=== PATIENT | male | born 1965 | race Caucasian/White ===

== ENCOUNTER 2020-04-15 12:13 | Observation (INO) ==
[2020-04-15] MEDS ORDERED: CYCLOBENZAPRINE HCL 10 MG TAB PO STA (12:25)
--- NOTE | 2020-04-15 12:33 | Emergency Department Note ---
Impression & Plan Strain of lumbar region, Intractable back pain ED Provider Note Provider: Abdiaziz Pulido MD DATE OF SERVICE: 04/15/2020 CHIEF COMPLAINT: Back pain HISTORY OF PRESENT ILLNESS: Patient is a 54-year-old gentleman resenting via ambulance today with report of back pain. Does have a history of back issues in the past. Patient states that he is been doing quite activity recently and on April 09 lifting something heavy in the onset of back pain. Moderate over day or 2 and then on April 12 was dragging a cold and experienced another injury. Denies actually falling or striking anything. Complaining of constant pain in the left lower back that occasionally has some slight radiation down the left leg. Denies any numbness or tingling of extremities or bladder or bowel dysfunction. Denies any dysuria or hematuria. Denies any abdominal pain. Patient states he not been eating well last couple days secondary to the pain. Has used some topical rubs at home but no other medicines at home for pain control. No history of back surgeries. Patient states that he has limited ability to rest at home and needs to take care of things and has continued to exert himself since the initial insult on the second. Patient received morphine and Zofran prior to arrival and states this is improving his pain quite a bit. Denies any new trauma falls or lifting this morning. Denies any upper back neck or head pain. REVIEW OF SYSTEMS: A total of 6 review of systems was obtained and negative except as stated above in the HPI. 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 ENT: Mucous membranes pink and moist. LUNGS: Airway patent. No retractions HEART: Regular rate and rhythm. ABDOMEN: Soft and non-tender, without guarding or rebound. No hepatosplenomegaly or masses BACK: No midline tenderness, L SI joint tenderness and some left paraspinal te nderness just superior to this area. No bilateral flank tenderness. SKIN: Acyanotic, warm, dry, without rashes EXTREMITIES: Without swelling, tenderness or deformity. Negative straight leg raise. NEUROLOGICAL: No focal deficits. No aphasia. No facial droop or slurred speech. Normal strength and tone in the lower extremities. Sensation to gross touch normal in the lower extremities. Ambulatory. Patient's hypertension was referred to the PCP PDMP was checked without noted issue. HOSPITAL COURSE: 1220 Patient was first seen and H&P performed. 1322 Patient reassessed and updated. Patient was resting comfortably. Attempted to have the patient sit up in bed and upon using the bed to elevate the patient an inch or 2 off of flat he had return of severe pain. [address] findings and attempted to again have the patient sit up with the assistance of the bed with recurrence of severe pain with this causing him to wince and scream. Discussed with him recommend further observation here in the hospital for pain control at this time. [address] Quintero the hospitalist service. Patient's laboratory studies and imaging reviewed. Differential includes Musculoskeletal, disc herniation, fracture, metastatic disease, cord compression, discitis, sciatica, cauda equina, infection, aortic disease, renal colic, gastrointestinal, as well as other pathologies. IMPRESSION/MEDICAL DECISION MAKING: Patient presents with what appears to be a clear exacerbation of musculoskeletal back pain. No significant acute traumatic injuries related. Did complete a lumbar x-ray without evidence of bony injury. I doubt acute retroperitoneal or intra-abdominal/intrapelvic mass or bleeding. Doubt AAA. Reproducible left and left paraspinal muscle tenderness with some slight left sciatica likely related to his exertion/lifting recently. No neuro compromise in the lower extremity, saddle anesthesia, bladder or bowel dysfunction, or IV drug use history concerning for cauda equina or epidural abscess. Denies any upper spine neck or head issues. Doubt this represents MS or demyelinating disease. Doubt nephrolithiasis given the reproducibility of symptoms with palpation of the lower back. Received morphine with improvement of symptoms prior to arrival. Given some Flexeril to help with muscle spasm. On reassessment patient was in comfort however trying to move the patient he began experience severe pain in his left lower back area again to the point of screaming out. Given a dose of dexamethasone and Toradol to help with anti- inflammatory effect and morphine. Given the significance of his pain a CT scan without contrast of this area will be completed. No evidence acute fracture and again I believe is likely more musculoskeletal pain. Basic labs here with n onspecific slight leukocytosis. No evidence of acute pancreatitis and no evidence of acute renal injury. Again this is easily reproducible with palpation of the area and thus believes against deeper organ issue. Discussed with the hospitalist as the patient still unable to ambulate with significant pain. Patient was in agreement with this as he is unable to sit up let alone walk at this time due to pain. Lidocaine patch was provided. DIAGNOSIS: Lower back pain/strain of lumbar region DISPOSITION: Discharge Patient was agreeable with this plan. Past Med/Surg History Social History Feels Safe at Home: Yes Smoking Status: Never smoker Allergies Allergies Allergy/AdvReac Type Severity Reaction Status Date / Time No Known Allergies Allergy Unverified 04/15/20 14:45 Home Meds Home Medications Medication Instructions Recorded Confirmed No Known Home Medications 04/15/20 04/15/20 Results & Data (ED) Vital Signs Vital Signs - 24 hr 04/15/20 12:22 04/15/20 13:53 Temperature 37 C Temperature Source Oral Pulse Rate 76 Pulse Rate [Apical] 70 Respiratory Rate 18 18 Blood Pressure 133/87 Blood Pressure [Left Arm] 113/66 Blood Pressure Mean 102 Blood Pressure Mean [Left Arm] 81 Pulse Oximetry 96 95 Oxygen Delivery Method Room Air Room Air Sepsis Recent Fever Within 48 Hours No Sepsis New/Unexplained Change in Mental Status No Sepsis Action Taken by Nursing No Action Required Laboratory Data Result diagrams: 04/15/20 15:49 04/15/20 15:49 Administered Medications Discontinued Medications Cyclobenzaprine HCl (Flexeril) 10 mg PO NOW STA Stop: 04/15/20 12:26 Last Admin: 04/15/20 12:34 Dose: 10 mg Documented by: [id number] Dexamethasone Sodium Phosphate (Decadron Pf) 10 mg IV NOW ONE Stop: 04/15/20 13:24 Last Admin: 04/15/20 13:28 Dose: 10 mg Documented by: [id number] Ketorolac Tromethamine (Toradol) 15 mg IV NOW STA Stop: 04/15/20 13:24 Last Admin: 04/15/20 13:28 Dose: 15 mg Documented by: [id number] Lidocaine (Lidoderm 5%) 1 patch TD ONE ONE Stop: 04/15/20 14:49 Last Admin: 04/15/20 15:11 Dose: 1 patch Documented by: [id number] Morphine Sulfate (Morphine Sulfate) 4 mg IV NOW STA Stop: 04/15/20 13:24 Last Admin: 04/15/20 13:28 Dose: 4 mg Documented by: [id number] Discharge Plan Visit Data *Final* Discharge Date/Time: 04/15/20 17:47 Chief Complaint: Back Injury/Pain Stated Complaint: Back Pain ED Provider: Abdiaziz Pulido Discharge Problem: Strain of lumbar region, Intractable back pain Patient Disposition: Admitted As Inpatient Discharge Instructions Interventions: ED Discharge Assessment Last Done: 04/15/20 17:47 Discharge Problem: Strain of lumbar region Qualifiers: Encounter type: initial encounter Qualified Code(s): S39.012A - Strain of muscle, fascia and tendon of lower back, initial encounter
--- NOTE | 2020-04-15 13:07 | XRay Report ---
XR lumbar spine min 4V routine HISTORY: 54 years-old Male lower back pain, lifting, worst L SI acute low back pain status post lift ing injury COMPARISON: Lumbar spine radiographs 08/30/2016 TECHNIQUE: 5 views of the lumbar spine FINDINGS: Minimal lumbar levoscoliosis. 5 lumbar type vertebral segments. Minimal spondylitic spurring with at least mild multilevel facet arthrosis. There is a least mild disc space narrowing at L5-S1. No acute fracture or subluxation identified. No spondylolysis or spondylolisthesis. Mild gaseous distention of the colon. Moderate fecal retention of the right hemicolon. IMPRESSION: No acute fracture or subluxation. ACT 112: Negative or not required by law. The above report was generated using voice recognition software. It may contain grammatical, syntax o r spelling errors. Electronically signed by: Alfie Cardenas M.D. 04/15/2020 1:05 PM
[2020-04-15] MEDS ORDERED: MoRPHine SULFATE 4 MG/ML 1 ML CARP\\VIAL IV STA (13:23)
[2020-04-15] MEDS ORDERED: KETOROLAC TROMETHAMINE 15 MG/ML VIAL IV STA (13:23)
[2020-04-15] MEDS ORDERED: DEXAMETHASONE **PF** INJ 10 MG/ML VIAL IV ONE (13:23)
--- NOTE | 2020-04-15 14:09 | CT Scan Report ---
CT lumbar spine wo con HISTORY: 54 years-old Male pain, L SI acute low back pain status post lifting injury COMPARISON: Lumbar spine radiographs of same day, 08/30/2016 TECHNIQUE: Multiple axial CT images of the lumbar spine were obtained without the use of IV contrast. Coronal and sagittal reformatted images were obtained from the axial data set and were submitted for review. A dose lowering technique was used consistent with the principals of MANGO. FINDINGS: No acute abnormality identified involving the imaged intra-abdominal structures. No aortic aneurysm o r adenopathy. The paraspinal tissues also appear to be within normal limits. Mild multilevel spondyli tic spurring with moderate facet arthrosis. Severe facet arthrosis at L4-L5. No acute fracture or sub luxation. No significant disc space narrowing. Minimal lumbar levoscoliosis, 11 degrees measured from L2-L5. Note that evaluation of the central canal and neuroforamina is better assessed by MRI. T12-L1: No central canal or foraminal narrowing. L1-L2: Small posterior annular disc bulge. No central canal or foraminal narrowing. L2-L3: Mild spondylitic spurring with small posterior disc osteophyte complex. Ligament of flavum thi ckening with moderate facet arthrosis. Flattening of the ventral thecal sac without significant centr al canal or foraminal narrowing. L3-L4: Mild spondylitic spurring with posterior disc osteophyte complex which flattens the ventral th ecal sac and narrows the AP dimension to 9 mm. Ligamentum flavum thickening with moderate facet arthr osis. Mild right foraminal narrowing. The left foramen is patent. L4-L5: Mild spondylitic spurring with posterior disc osteophyte complex, ligamentum flavum thickening , and severe facet arthrosis. Central canal is patent. Mild bilateral foraminal narrowing. L5-S1: Minimal spondylitic spurring. Small posterior annular disc bulge with ligamentum flavum thicke rocío and moderate facet arthrosis. Central canal and neuroforamen are patent. IMPRESSION: 1. No acute fracture or subluxation. 2. Mild multilevel spondylitic spurring and discogenic degeneration is noted in conjunction with mode rate to severe facet arthrosis. 3. Mild central canal stenosis at L3-L4 with mild multilevel foraminal narrowing. 4. 11 degrees lumbar levoscoliosis. ACT 112: Negative or not required by law. The above report was generated using voice recognition software. It may contain grammatical, syntax o r spelling errors. Electronically signed by: Alfie Cardenas M.D. 04/15/2020 2:08 PM
[2020-04-15] MEDS ORDERED: LIDOCAINE 5% 1 PATCH TD ONE (14:48)
--- NOTE | 2020-04-15 15:35 | History & Physical Report ---
Date of Service April 15, 2020 Assessment & Plan (1) Intractable back pain: Acetaminophen ESDRAS, Toradol PRN, Oxycodone if Toradol not effective enough. Continue lidocaine patch Continue flexeril PRN for muscle spasms Suspect pain combination of muscle spasms with a disc prolapse causing mild ra dicular symptoms PT eval tomorrow to help with at home exercises and modified techniques. Given degree of arthritis will (2) Fecal retention: Noted incidentally in right hemicolon on XR. Patient reports no issues with constipation or diarrhea. Will monitor currently but may need laxatives if discharged with any opiates. Admission and Anticipated Discharge Date Admission Date: 04/15/2020 History of Present Illness Chief Complaint: Back pain Primary Care Provider: NO PCP James Willis is a 54 year old male who presents to the ER with ongoing back pain which has been ongoing for last week but acutely worsened this morning. Initial pain mild approximately a week ago in central lower back after lifting a heavy object. Acutely worse on Wednesday which occurred with a twisting movement to the left side trying to pull a ana laura. No pain initially but later that night he was in so much pain it was difficult to walk. This slowly improved until this morning. Woke up with only mild pain this morning. Around 6am while walking to the kitchen had sudden onset worsening without any sudden movement. Severity 9- 10/10 at worse, usually 3-4/10 this week. Currently 0/10 but on movement, 5-6/10 on movement. Occasional radiation down back of left leg. No numbness. No perianal numbness. No change in bowel movements or urine. Taking ibuprofen since Wednesday, unknown dose or quantity - helping a small amount. No fevers, chills, shortness of breath, cough, loss of taste or smell. No [id number] exposure. Allergies Allergy/AdvReac Type Severity Reaction Status Date / Time No Known Allergies Allergy Unverified 04/15/20 14:45 Home Medications Home Medications Medication Instructions Recorded Confirmed Type No Known Home Medications 04/15/20 04/15/20 History Past Med/Surg History Family History (Updated 04/15/20 @ 21:25 by Denise Ugalde RN) Mother Stroke Social History Preferred Language: [place] Communication Ability: Effective Market Analyst Required: No Beliefs That Will Affect Care: None Current Living Situation: Family Other Information That Helps Us Care for You: No Feels Safe at Home: Yes Safety Concerns: Feels Safe At This Time Smoking Status: Never smoker Hx Alcohol Use: No Hx Substance Use: No Review of Systems Review of Systems: All systems reviewed & are unremarkable except as noted in HPI & below Physical Exam Constitutional: WD/WN, vitals as above Eyes: PERRL, conjunctivae normal, anicteric sclerae ENMT: external ear and nose normal, oropharynx normal Neck: trachea midline, no thyromegaly Respiratory: normal respiratory effort, lungs clear to auscultation Cardiovascular: RRR, no murmur, no edema Gastrointestinal (Abdomen): Inspection/Auscultation: normal bowel sounds Percussion/Palpation: abdomen soft; abdomen nontender, no guarding and abdomen not rigid Musculoskeletal: Spine: lumbar spine normal to inspection and + paraspinal t enderness (T12/L1); straight leg raise negative bilaterally and no sciatic notch tenderness Skin: no rashes, warm and dry Neurologic: moves all extremities and awake; no focal motor deficits and not confused Speech / Cognition: normal speech Motor/Sensory: no tremor and no sensory deficit Psychiatric: A+Ox3, euthymic affect Genitourinary: no CVA tenderness Results & Data Results & Data ([facility]) Vital Signs (Past 12 Hours) Vital Signs Temp Pulse Pulse Resp BP BP Pulse Ox 04/15/20 13:53 70 18 113/66 95 04/15/20 12:22 37 C 76 18 133/87 96 Diagnostic Findings XR lumbar spine min 4V routine IMPRESSION: No acute fracture or subluxation. CT lumbar spine wo con IMPRESSION: 1. No acute fracture or subluxation. 2. Mild multilevel spondylitic spurring and discogenic degeneration is noted in conjunction with moderate to severe facet arthrosis. 3. Mild central canal stenosis at L3-L4 with mild multilevel foraminal narrowing. 4. 11 degrees lumbar levoscoliosis. Code Status & VTE Plan Code Status Full VTE Prophylaxis Plan VTE Prophylaxis will be ordered: No Reason for no VTE drug order: Treatment not indicated Reason for no VTE mechanical prophylaxis: Treatment not indicated PG Care Time/CCT Total # of Minutes Spent Total Time Spent with Patient: Total time spent is greater than 50% in coordination of care (as documented) at patient's floor/unit and/or counseling patient: Coding Level of Care Code 82423 OBS Care - Level 2 Diagnoses Intractable back pain M54.9 Fecal retention K59.00
[2020-04-15 16:04] LABS: Basophils # (auto) 0.02 K/uL (0-0.2); Basophils % (auto) 0.2 %; Eosinophils # (auto) 0.01 K/uL (0-0.5); Eosinophils % (auto) 0.1 %; Hematocrit (blood only) 49.9 % (42-52); Hemoglobin 17.9 g/dL (14.0-18.0); Immature Granulocytes # (auto) 0.02 K/uL (0.00-0.02); Immature Granulocytes % (auto) 0.2 %; Lymphocytes # (auto) 1.72 K/uL (1.2-3.4); Lymphocytes % (auto) 15.5 %; Mean Corpuscular Hgb Conc 35.9 g/dL (32-36); Mean Corpuscular Volume 89.3 fL (80-100); Mean Platelet Volume 9.5 fL (7.4-10.4); Monocytes # (auto) 0.39 K/uL (0.11-0.59); Monocytes % (auto) 3.5 %; Neutrophils # (auto) 8.91 K/uL (1.4-6.5); Neutrophils % (auto) 80.5 %; Platelet Count 156 K/uL (130-400); RDW Coefficient of Variation 12.2 % (11.5-14.5); RDW Standard Deviation 39.2 fL (36.4-46.3); Red Blood Count 5.59 M/uL (4.7-6.1); White Blood Count 11.07 K/uL (4.8-10.8)
[2020-04-15 16:22] LABS: Albumin Level 3.7 gm/dl (3.4-5.0); BUN Creatinine Ratio 25.2 (10-20); Calcium 9.1 mg/dl (8.5-10.1); Creatinine Clr Calc Pharmacy 125.2 ml/min; Est GFR (Non-African American) 102.7; Potassium 4.7 mmol/L (3.5-5.1)
[2020-04-15 16:23] LABS: Albumin Globulin Ratio 0.8 (0.9-2); Bilirubin,Total 1.5 mg/dl (0.2-1); Globulin 4.7 gm/dl (2.5-4.0); Total Protein 8.4 gm/dl (6.4-8.2)
[2020-04-15] MEDS ORDERED: CYCLOBENZAPRINE HCL 5 MG TAB PO PRN (18:17)
[2020-04-15] MEDS ORDERED: OXYCODONE HCL IR 5 MG TAB (IMMEDIATE RELEASE) PO PRN (18:17)
[2020-04-15] MEDS ORDERED: POLYETHYLENE (MIRALAX) 17 GM PACK PO PRN (18:17)
[2020-04-15] MEDS ORDERED: KETOROLAC TROMETHAMINE 15 MG/ML VIAL IV PRN (18:17)
[2020-04-15] MEDS ORDERED: MAGNESIUM HYDROXIDE SUSP 30 ML UDC PO PRN (18:17)
[2020-04-15] MEDS ORDERED: ONDANSETRON INJ 2 MG/ML 2 ML VIAL IV PRN (18:17)
[2020-04-15] MEDS ORDERED: ALUMINUM/MAGNESIUM SUSP 30 ML UDC PO PRN (18:17)
[2020-04-15] MEDS: ACETAMINOPHEN 325 MG TAB PO SCH (21:30)
[2020-04-16] MEDS: ACETAMINOPHEN 325 MG TAB PO SCH ×2 (08:59→10:41)
[2020-04-16] MEDS ORDERED: LIDOCAINE 5% 1 PATCH TD SCH (09:00)
[2020-04-16 09:02] LABS: Basophils # (auto) 0.01 K/uL (0-0.2); Basophils % (auto) 0.1 %; Hematocrit (blood only) 49.3 % (42-52); Hemoglobin 18.1 g/dL (14.0-18.0); Immature Granulocytes # (auto) 0.04 K/uL (0.00-0.02); Immature Granulocytes % (auto) 0.3 %; Lymphocytes # (auto) 2.14 K/uL (1.2-3.4); Lymphocytes % (auto) 14.2 %; Mean Corpuscular Hemoglobin 31.9 pg (25-34); Mean Corpuscular Hgb Conc 36.7 g/dL (32-36); Mean Corpuscular Volume 86.9 fL (80-100); Mean Platelet Volume 9.6 fL (7.4-10.4); Monocytes # (auto) 0.95 K/uL (0.11-0.59); Monocytes % (auto) 6.3 %; Neutrophils # (auto) 11.88 K/uL (1.4-6.5); Neutrophils % (auto) 79.1 %; Platelet Count 193 K/uL (130-400); RDW Coefficient of Variation 12.1 % (11.5-14.5); RDW Standard Deviation 38.5 fL (36.4-46.3); Red Blood Count 5.67 M/uL (4.7-6.1); White Blood Count 15.02 K/uL (4.8-10.8)
[2020-04-16 09:27] LABS: Albumin Level 4.1 gm/dl (3.4-5.0); BUN Creatinine Ratio 33.8 (10-20); Calcium 9.6 mg/dl (8.5-10.1); Creatinine Clr Calc Pharmacy 112.6 ml/min; Est GFR (African American) 113.9; Est GFR (Non-African American) 98.3; Potassium 4.1 mmol/L (3.5-5.1)
[2020-04-16 09:29] LABS: Albumin Globulin Ratio 0.8 (0.9-2); Bilirubin,Total 1.2 mg/dl (0.2-1); Globulin 4.8 gm/dl (2.5-4.0); Total Protein 8.9 gm/dl (6.4-8.2)
--- NOTE | 2020-04-16 11:02 | Discharge Summary ---
Date of Service April 16, 2020 Admission HPI Per Admitting Provider James Willis is a 54 year old male who presents to the ER with ongoing back pain which has been ongoing for last week but acutely worsened this morning. Initial pain mild approximately a week ago in central lower back after lifting a heavy object. Acutely worse on Wednesday which occurred with a twisting movement to the left side trying to pull a ana laura. No pain initially but later that night he was in so much pain it was difficult to walk. This slowly improved until this morning. Woke up with only mild pain this morning. Around 6am while walking to the kitchen had sudden onset worsening without any sudden movement. Severity 9- 10/10 at worse, usually 3-4/10 this week. Currently 0/10 but on movement, 5-6/10 on movement. Occasional radiation down back of left leg. No numbness. No perianal numbness. No change in bowel movements or urine. Taking ibuprofen since Wednesday, unknown dose or quantity - helping a small amount. No fevers, chills, shortness of breath, cough, loss of taste or smell. No [id number] exposure. Principal Diagnosis back pain Discharge Exam Constitutional WD/WN, vitals as above Respiratory normal respiratory effort, lungs clear to auscultation Cardiovascular RRR, no murmur, no edema Gastrointestinal (Abdomen) Inspection/Auscultation: abdomen normal to inspection and normal bowel sounds; abdomen not distended Percussion/Palpation: abdomen soft; abdomen nontender Musculoskeletal no cyanosis or clubbing, extremities motor strength 5/5 no tenderness over spine or paraspinal muscles to palpation Skin no rashes, warm and dry Neurologic moves all extremities and awake leg strength equal, no loss of sensation Psychiatric A+Ox3, euthymic affect Discharge Data Allergies Allergy/AdvReac Type Severity Reaction Status Date / Time No Known Allergies Allergy Unverified 04/15/20 14:45 Consultations 04/15/20 15:14 ED Decision to Admit Stat Ordered Studies 04/15/20 13:23 CT lumbar spine wo con Stat Hospital Course (1) Intractable back pain: Mr. Glez is feeling much better this morning. He is ambulating without difficulty. He continues to report some mild discomfort but denies any radiculopathy, numbness, or loss of control of bowel or bladder. He feels ready to get home today Advised to continue Acetaminophen 1g q8h and lidoderm patches. Patient has not required oxycodone, Flexeril or Toradol overnight so will avoid prescribing narcotics or muscle relaxers at discharge CT scan of the lumbar spin without acute finding: IMPRESSION: 1. No acute fracture or subluxation. 2. Mild multilevel spondylitic spurring and discogenic degeneration is noted in conjunction with moderate to severe facet arthrosis. 3. Mild central canal stenosis at L3-L4 with mild multilevel foraminal narrowing. 4. 11 degrees lumbar levoscoliosis. Provided physical therapy exercises for home. (2) Fecal retention: Noted incidentally in right hemicolon on XR. Patient reports no issues with constipation or diarrhea. (3) Hyperbilirubinemia: Blirubin 1.5 on admission, now 1.2. Likely reactive as patient is not experiencing nausea, vomiting or right upper quadrant pain. No need for further workup at this time. Advised patient that if he experienced any of these symptoms he should call his doctor or return to the ED. Recommend following up with pcp who may want to recheck level in the future (4) Leukocytosis: 11 on admission which was likely reactive due to back injury/ pain and 15 today. Increase likely due to dexamethasone given in ED. No other obvious signs of infection: no cough, sob, fever, dysuria, diarrhea (5) Azotemia: BUN elevated to 30 today, kidney function otherwise normal, likely secondary to NSAID use. Will caution patient to discontinue their use for now and utilize Tylenol and lidocaine patches for pain Follow up with pcp Total Time Total Time Spent Total Time Spent (In Minutes): greater than 30 minutes Discharge Plan Discharge Items Patient Disposition: Home - Self-Care Reason For Visit: INTRACTABLE BACK PAIN Discharge Diagnosis: Back pain Activity: Per Instructions section Non-emergency contact: Primary Care Provider Call non-emergency contact if: you have any medication questions Follow-up/Referrals: PCP,NO [Primary Care Provider] - (Offered to set patient up with PCP patient declined.) Diet: Regular Addtl Attending Provider Instructions: Back pain: As we discussed, you should take it easy when you return home, slowly increase your activity as tolerated. You can take 1000 mg (1g) of acetaminophen (Tylenol) every 8 hours but do not exceed 3,000 mg in 24 hours. You should discontinue ibuprofen or other non steroidal anti-inflammatories (such as Aleve) for now as your kidney function decreased slightly likely due to these medications. Continue the exercises given to you by physical therapy. -Your CT scan of your back showed chronic arthritis type changes. - Call your doctor if the pain worsens or if you are experiencing pain, numbness or weakness down your legs. - Return to the emergency department if you have numbness around you groin or you lose control of bowel or bladder. Hyperbilirubinemia: Your bilirubin level was elevated on admission at 1.5, today it is trending back down. As you do not have any symptoms of a gallbladder issue such as nausea, vomiting or right upper quadrant pain this does not need to be further evaluated at this time. Please follow up with your primary care provider. They may want to recheck this level in the future to ensure resolution Pending Studies at Discharge: No Stand-Alone Forms: My [employer], Smoking Cessation Medications and DC Order Prescriptions: New lidocaine 5 % Adhesive Patch,Medicated 1 patch transdermal QAM Qty: 7 RF: 0 No Action No Known Home Medications RF: 0 Discharge Orders: Discharge Order (Routine); Ordered 04/16/20 Ordered By: Elo Siegel/Other Patient Handouts: Back How Works, Back Pain Relieve, Back Safety Into and Out Bed, Back Safety Bending, Back Safety Lifting, Back Safety Push Pull, Safety Back Sleep Pos, Back Safety Sit, Back Safety Stand, Back Safety Turning Admission Data Admit Date/Time: 04/15/20 15:47 Attending Provider: Aditya Farris Admit Provider: Lei Quintero Primary Care Provider: PCP,NO Other Providers: Aditya Farris Other Interventions: Discharge Summary Assessment (RN) Last Done: 04/16/20 11:51 DC Date/Time DO NOT enter until pt leaves facility: 04/16/20 13:47 Supervising Physician Co-Signing Physician Notes I supervised Elo Portillo NP on this patient's care. I examined the patient today independently of her. I discussed the plan of care with her with the plan being as written in her note except for any following changes/exceptions: None. No pain today. Worked with PT for some exercises. Will follow up with a physician if the pain recurs. Lumbar CT does not indicate any pathologic cause of back pain. Coding Level of Care Code D/C Day Management >30 mins Diagnoses Intractable back pain M54.9 Fecal retention K59.00 Hyperbilirubinemia E80.6 Leukocytosis D72.829 Azotemia R79.89
== END 2020-04-16 13:47 | disposition home or self-care (01) ==
LOC: ED 12:13 → 3N 12:13 → SUATTDRO 15:47 → 3N 17:47